=== PATIENT | male | born 1980 ===

== ENCOUNTER 2018-04-06 07:36 | Emergency (ER) | payer MEDICAID, OTHER ==
--- NOTE | 2018-04-06 07:59 | ED PDOC ---
HPI: Psych/Substance Abuse Time Seen by Provider: 04/06/18 07:44 Chief Complaint (Nursing): Substance Abuse Chief Complaint (Provider): substance abuse History Per: Patient History/Exam Limitations: no limitations Onset/Duration Of Symptoms: Hrs (today) Current Symptoms Are (Timing): Still Present Associated Symptoms: denies: Suicidal Thoughts, Suicidal Plan Additional Complaint(s): Jesus Woodall is a 37 year old male, with no significant past medical history, who was brought to the emergency department by EMS after patient was found in street. Patient admits to ETOH and crack use, last use 05:00 today. EMS state when aroused patient became combative. He denies any suicidal or homicidal ideation. No further medical complaints. PMD: None provided. Past Medical History Reviewed: Historical Data, Nursing Documentation, Vital Signs - Medical History PMH: Gastritis Denies: Chronic Kidney Disease - Surgical History Surgical History: No Surg Hx - Family History Family History: States: Unknown Family Hx - Immunization History Hx Tetanus Toxoid Vaccination: No Hx Influenza Vaccination: No Hx Pneumococcal Vaccination: No - Home Medications Home Medications: Ambulatory Orders Medication Instructions Recorded Silver Sulfadiazine 1% [Silver 1 unit TP BID #1 jar 03/28/17 Sulfadiazine] - Allergies Allergies/Adverse Reactions: Allergies Allergy/AdvReac Type Severity Reaction Status Date / Time No Known Allergies Allergy Verified 04/06/18 07:39 Review of Systems ROS Statement: Except As Marked, All Systems Reviewed And Found Negative Constitutional: Positive for: Other (substance abuse) Psych: Negative for: Suicidal ideation (or homicidal ideation) Physical Exam - Reviewed Nursing Documentation Reviewed: Yes Vital Signs Reviewed: Yes - Physical Exam Appears: Positive for: No Acute Distress Head Exam: Positive for: ATRAUMATIC, NORMOCEPHALIC Skin: Positive for: Normal Color, Warm, Dry Eye Exam: Positive for: Normal appearance, EOMI, PERRL Neck: Positive for: Painless ROM Cardiovascular/Chest: Positive for: Regular Rate, Rhythm. Negative for: Murmur Respiratory: Positive for: Normal Breath Sounds. Negative for: Respiratory Distress Gastrointestinal/Abdominal: Positive for: Normal Exam, Soft. Negative for: Tenderness Back: Positive for: Normal Inspection Extremity: Positive for: Normal ROM (upper and lower extremities). Negative for : Deformity, Swelling Neurologic/Psych: Positive for: Alert (sleepy and arousable) - Progress Re-evaluation Time: 11:59 Condition: Improved Medical Decision Making Medical Decision Making: Time: 07:44 Initial Plan: --Alcohol serum --Drug screen --Reevaluation ----- Scribe Attestation: Documented by Martin Meeks, acting as a scribe for Ernesto Rees MD. Provider Scribe Attestation: All medical record entries made by the Scribe were at my direction and personally dictated by me. I have reviewed the chart and agree that the record accurately reflects my personal performance of the history, physical exam, medical decision making, and the department course for this patient. I have also personally directed, reviewed, and agree with the discharge instructions and disposition. Disposition - Clinical Impression Clinical Impression: Substance abuse - Patient ED Disposition Is Patient to be Admitted: No Counseled Patient/Family Regarding: Studies Performed, Diagnosis, Need For Followup - Disposition Referrals: [facility] [Outside] Disposition: Routine/Home Disposition Time: 11:59 Condition: FAIR Instructions: Drug Abuse and Drug Addiction (DC) Forms: [facility] ([place]ian) Print Language: UKRAINIAN
[2018-04-06 11:29] VITALS: O2SAT 100
[2018-04-06 12:10] LABS: BARBITURATES, UR NEGATIVE (NEGATIVE)
[2018-04-06 12:13] LABS: BENZODIAZEPINES, UR NEGATIVE (NEGATIVE); OPIATES, UR NEGATIVE (NEGATIVE); PHENCYCLIDINE, UR NEGATIVE (NEGATIVE)
[2018-04-06 13:40] VITALS: BP 127/75; PULSE 62; RESP 17; TEMP 98.8
== END 2018-04-06 13:39 | disposition home or self-care (01) ==
LOC: H.ER 07:36
DX: F10.10 Alcohol abuse, uncomplicated (principal); Y90.3 Blood alcohol level of 60-79 mg/100 ml
CPT/HCPCS: 82948; 99284; G0480